=== PATIENT | male | born 1980 | race Caucasian/White ===

== ENCOUNTER 2024-04-23 04:04 | Day surgery (SDC) | payer OTHER ==
[~2024-04-23 04:04] MED LIST: ACET325 PO; CEFTRIAXONE2 G1 IV; CEPH500 PO; CRUTCH4 USE; CYCL10 PO; CefTRIAXone Sodium 2,000 MG in NS 100 ML IV SCH; FAMO20 PO; GABA300 PO; HYDACE5 PO; IBUP600 PO; NAPR500 PO; POTA10T PO; Robaxin750 MG PO; TRAM50 PO; VALACYCLOVIR1000 MG PO; VISBIOME 112.51 EACH PO
[2024-04-23 11:38] VITALS: BP 131/88
== END 2024-04-23 11:57 | disposition home or self-care (01) ==
LOC: ATC 04:04
DX: A41.02 Sepsis due to Methicillin resistant Staphylococcus aureus (principal); J90 Pleural effusion, not elsewhere classified; E87.6 Hypokalemia; R82.71 Bacteriuria; D69.6 Thrombocytopenia, unspecified; D72.825 Bandemia; E87.1 Hypo-osmolality and hyponatremia; B37.0 Candidal stomatitis; E83.51 Hypocalcemia; K21.9 Gastro-esophageal reflux disease without esophagitis; M54.50 Low back pain, unspecified; Z79.899 Other long term (current) drug therapy
CPT/HCPCS: 96365; J0696

== ENCOUNTER 2024-04-24 03:35 | Day surgery (SDC) | payer OTHER ==
[2024-04-24 11:49] VITALS: BP 142/92
--- NOTE | 2024-04-25 14:30 | NUR ---
LATE DOCUMENTATION. PT RECEIVED ROCEPHIN ON 04/24/24 WITH START TIME OF 1142 AND STOP TIME OF 1202
== END 2024-04-24 12:02 | disposition home or self-care (01) ==
LOC: ATC 03:35
DX: R78.81 Bacteremia (principal)
CPT/HCPCS: 96365; J0696

== ENCOUNTER 2024-04-25 02:49 | Day surgery (SDC) | payer OTHER ==
[2024-04-25 11:36] VITALS: BP 146/100
== END 2024-04-25 11:58 | disposition home or self-care (01) ==
LOC: ATC 02:49
DX: R78.81 Bacteremia (principal); K21.9 Gastro-esophageal reflux disease without esophagitis
CPT/HCPCS: 96365; J0696

== ENCOUNTER 2024-04-26 02:50 | Day surgery (SDC) | payer OTHER ==
[2024-04-26 11:29] VITALS: BP 141/95
== END 2024-04-26 11:50 | disposition home or self-care (01) ==
LOC: ATC 02:50
DX: A41.01 Sepsis due to Methicillin susceptible Staphylococcus aureus (principal); K21.9 Gastro-esophageal reflux disease without esophagitis
CPT/HCPCS: 96365; J0696

== ENCOUNTER 2024-04-27 06:19 | Day surgery (SDC) | payer OTHER ==
[2024-04-27 11:27] VITALS: BP 149/107
== END 2024-04-27 11:50 | disposition home or self-care (01) ==
LOC: ATC 06:19
DX: A41.02 Sepsis due to Methicillin resistant Staphylococcus aureus (principal); B95.61 Methicillin susceptible Staphylococcus aureus infection as the cause of diseases classified elsewhere; B02.9 Zoster without complications; M54.50 Low back pain, unspecified; J90 Pleural effusion, not elsewhere classified; E87.6 Hypokalemia; R82.71 Bacteriuria; B37.0 Candidal stomatitis; E83.51 Hypocalcemia; D69.6 Thrombocytopenia, unspecified; D72.825 Bandemia; E87.1 Hypo-osmolality and hyponatremia; Z79.1 Long term (current) use of non-steroidal anti-inflammatories (NSAID); Z79.01 Long term (current) use of anticoagulants; Z79.899 Other long term (current) drug therapy
CPT/HCPCS: 96365; J0696

== ENCOUNTER 2024-04-30 02:13 | Day surgery (SDC) | payer OTHER ==
[2024-04-30 11:35] VITALS: BP 156/85
== END 2024-04-30 11:58 | disposition home or self-care (01) ==
LOC: ATC 02:13
DX: R78.81 Bacteremia (principal); B95.61 Methicillin susceptible Staphylococcus aureus infection as the cause of diseases classified elsewhere; K21.9 Gastro-esophageal reflux disease without esophagitis; Z79.899 Other long term (current) drug therapy
CPT/HCPCS: 96365; J0696

== ENCOUNTER 2024-05-01 05:30 | Day surgery (SDC) | payer OTHER ==
[~2024-05-01 05:30] MED LIST changes: -CefTRIAXone Sodium 2,000 MG in NS 100 ML IV SCH
[2024-05-01] MEDS ORDERED: CefTRIAXone Sodium 2,000 MG in NS 100 ML IV SCH (06:00)
[2024-05-01 11:39] VITALS: BP 143/99
== END 2024-05-01 12:01 | disposition home or self-care (01) ==
LOC: ATC 05:30
DX: R78.81 Bacteremia (principal); B95.61 Methicillin susceptible Staphylococcus aureus infection as the cause of diseases classified elsewhere; K21.9 Gastro-esophageal reflux disease without esophagitis; Z79.899 Other long term (current) drug therapy
CPT/HCPCS: 96365; J0696

== ENCOUNTER 2024-05-03 02:22 | Day surgery (SDC) | payer OTHER ==
[2024-05-03] MEDS ORDERED: CefTRIAXone Sodium 2,000 MG in NS 100 ML IV SCH (06:00)
[2024-05-03 11:35] VITALS: BP 147/105
== END 2024-05-03 11:53 | disposition home or self-care (01) ==
LOC: ATC 02:22
DX: R78.81 Bacteremia (principal); B95.61 Methicillin susceptible Staphylococcus aureus infection as the cause of diseases classified elsewhere; K21.9 Gastro-esophageal reflux disease without esophagitis; Z79.899 Other long term (current) drug therapy
CPT/HCPCS: 96365; J0696

== ENCOUNTER 2024-05-04 02:07 | Day surgery (SDC) | payer OTHER ==
[~2024-05-04 02:07] MED LIST changes: +CefTRIAXone Sodium 2,000 MG in NS 100 ML IV SCH
[2024-05-04 11:29] VITALS: BP 141/94
== END 2024-05-04 11:50 | disposition home or self-care (01) ==
LOC: ATC 02:07
DX: R78.81 Bacteremia (principal); B95.61 Methicillin susceptible Staphylococcus aureus infection as the cause of diseases classified elsewhere; K21.9 Gastro-esophageal reflux disease without esophagitis
CPT/HCPCS: 96365; J0696

== ENCOUNTER 2024-05-07 11:32 | Day surgery (SDC) | payer OTHER ==
[2024-05-07 11:47] VITALS: BP 134/93
== END 2024-05-07 12:07 | disposition home or self-care (01) ==
LOC: ATC 11:32
DX: R78.81 Bacteremia (principal); B95.61 Methicillin susceptible Staphylococcus aureus infection as the cause of diseases classified elsewhere; K21.9 Gastro-esophageal reflux disease without esophagitis
CPT/HCPCS: 96365; J0696

== ENCOUNTER 2024-05-08 00:51 | Day surgery (SDC) | payer OTHER ==
[~2024-05-08 00:51] MED LIST changes: -CefTRIAXone Sodium 2,000 MG in NS 100 ML IV SCH
[2024-05-08] MEDS ORDERED: CefTRIAXone Sodium 2,000 MG in NS 100 ML IV SCH (01:00)
[2024-05-08 11:57] VITALS: BP 127/92
== END 2024-05-08 12:28 | disposition home or self-care (01) ==
LOC: ATC 00:51
DX: R78.81 Bacteremia (principal); B95.61 Methicillin susceptible Staphylococcus aureus infection as the cause of diseases classified elsewhere; K21.9 Gastro-esophageal reflux disease without esophagitis
CPT/HCPCS: 96365; J0696

== ENCOUNTER 2024-05-09 02:53 | Day surgery (SDC) | payer OTHER ==
[2024-05-09] MEDS ORDERED: CefTRIAXone Sodium 2,000 MG in NS 100 ML IV SCH (06:00)
[2024-05-09 11:35] VITALS: BP 132/83
== END 2024-05-09 11:56 | disposition home or self-care (01) ==
LOC: ATC 02:53
DX: A41.01 Sepsis due to Methicillin susceptible Staphylococcus aureus (principal); K21.9 Gastro-esophageal reflux disease without esophagitis; Z79.899 Other long term (current) drug therapy
CPT/HCPCS: 96365; J0696

== ENCOUNTER 2024-05-10 03:10 | Day surgery (SDC) | payer OTHER ==
[2024-05-10] MEDS ORDERED: CefTRIAXone Sodium 2,000 MG in NS 100 ML IV SCH (06:00)
[2024-05-10 11:36] VITALS: BP 122/83
== END 2024-05-10 12:02 | disposition home or self-care (01) ==
LOC: ATC 03:10
DX: A41.01 Sepsis due to Methicillin susceptible Staphylococcus aureus (principal); K21.9 Gastro-esophageal reflux disease without esophagitis; Z79.899 Other long term (current) drug therapy
CPT/HCPCS: 96365; J0696

== ENCOUNTER 2024-05-11 03:21 | Day surgery (SDC) | payer OTHER ==
[~2024-05-11 03:21] MED LIST changes: +CefTRIAXone Sodium 2,000 MG in NS 100 ML IV SCH
[2024-05-11 11:37] VITALS: BP 141/95
== END 2024-05-11 12:00 | disposition home or self-care (01) ==
LOC: ATC 03:21
DX: R78.81 Bacteremia (principal); B95.61 Methicillin susceptible Staphylococcus aureus infection as the cause of diseases classified elsewhere; K21.9 Gastro-esophageal reflux disease without esophagitis
CPT/HCPCS: 96365; J0696

== ENCOUNTER 2024-05-12 02:23 | Day surgery (SDC) | payer OTHER ==
[~2024-05-12 02:23] MED LIST changes: -CefTRIAXone Sodium 2,000 MG in NS 100 ML IV SCH
[2024-05-12] MEDS ORDERED: CefTRIAXone Sodium 2,000 MG in NS 100 ML IV SCH (06:00)
[2024-05-12 11:25] VITALS: BP 133/81
== END 2024-05-12 11:50 | disposition home or self-care (01) ==
LOC: ATC 02:23
DX: A41.01 Sepsis due to Methicillin susceptible Staphylococcus aureus (principal); K21.9 Gastro-esophageal reflux disease without esophagitis
CPT/HCPCS: 96365; J0696

== ENCOUNTER 2024-05-13 08:25 | Day surgery (SDC) | payer OTHER ==
[~2024-05-13 08:25] MED LIST changes: +CefTRIAXone Sodium 2,000 MG in NS 100 ML IV SCH
[2024-05-13 08:27] VITALS: BP 139/88
== END 2024-05-13 08:53 | disposition home or self-care (01) ==
LOC: ATC 08:25
DX: A41.01 Sepsis due to Methicillin susceptible Staphylococcus aureus (principal); K21.9 Gastro-esophageal reflux disease without esophagitis; Z79.899 Other long term (current) drug therapy
CPT/HCPCS: 96365; J0696

== ENCOUNTER 2024-05-14 02:35 | Day surgery (SDC) | payer OTHER ==
[~2024-05-14 02:35] MED LIST changes: -CefTRIAXone Sodium 2,000 MG in NS 100 ML IV SCH
[2024-05-14] MEDS ORDERED: CefTRIAXone Sodium 2,000 MG in NS 100 ML IV SCH (06:00)
[2024-05-14 11:46] VITALS: BP 135/95
== END 2024-05-14 12:12 | disposition home or self-care (01) ==
LOC: ATC 02:35
DX: R78.81 Bacteremia (principal); B95.61 Methicillin susceptible Staphylococcus aureus infection as the cause of diseases classified elsewhere; K21.9 Gastro-esophageal reflux disease without esophagitis
CPT/HCPCS: 96365; J0696